=== PATIENT | female | born 1945 | race Caucasian/White ===

== ENCOUNTER 2019-09-17 02:34 | Emergency (ER) | payer MEDICARE ==
[2014-07-27 14:17] VITALS: BP 142/62
[~2019-09-17 02:34] MED LIST: CELE200C PO; FERR325T14 PO; LEVO75TA5 PO; LISI-334 PO; NAPR220T70 PO; OXYC1TAB15 PO; WARF-78 PO; WARF4TAB64 PO
--- NOTE | 2019-09-17 03:00 | PHYS DOC ---
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 EMS reported that patient had increasing shortness of breath and family member called 911 at 0141 and presented to the patient home at 0151 she had shallow and agonal breathing with GCS of 3. Patient stopped breathing and around 0200 CPR was started by EMS because the family member was not able to find DNR documentation. Patient was in asystole THE time during the 38 minutes of CPR and brought him to ER. Weeks and dilated pupils without spontaneous breathing or cardiac activity without CPR. Review of Systems Review of Systems Unable to obtain Allergies Allergies Allergies Coded Allergies Type Severity Reaction Last Updated Verified Penicillins Allergy Severe ANAPHYLAXIS 06/07/14 Yes Erythromycin Base Allergy Intermediate RASH 06/07/14 Yes morphine Adverse Reaction Severe HYPOTENSION AND BRADYCARDIA 06/07/14 Yes Physical Exam Physical Exam Constitutional: Unresponsive CPR in progress HENT: Atraumatic. Eyes: Fixed dilated pupil. Neck: Atraumatic Cardiovascular: CPR in progress, no spontaneous cardiac activity without CPR Lungs & Thorax: No spontaneous respiration. Abdomen:Atraumatic. Extremities: Atraumatic, no spontaneous pulses without CPR Neurologic: Unresponsive. Psychologic: Unresponsive. EKG EKG [] Radiology/Procedures Radiology/Procedures [] Course & Med Decision Making Course & Med Decision Making Evolution of patient in ER showed 74-year-old male patient on hospice care brought in by EMS cardiorespiratory arrest with unsuccessful to auscultation. 38 minutes. Patient had fixed and dilated pupils ([facility]. CPR was stopped at 0238 and patient pronounced at that time. Patient family members were informed about the outcome of the patient. Dragon Disclaimer Dragon Disclaimer This electronic medical record was generated, in whole or in part, using a voice recognition dictation system. Departure Departure Impression: Primary Impression: Cardiorespiratory arrest Disposition: 20 (237) Condition: Referrals: YU HAMILTON MD (PCP) LESA BAUGH MD Sep 17, 2019 03:00
== END 2019-09-17 04:46 | disposition expired ==
LOC: ER 02:34
DX: I46.9 Cardiac arrest, cause unspecified (principal); R06.02 Shortness of breath; Z88.0 Allergy status to penicillin; Z88.1 Allergy status to other antibiotic agents; Z88.5 Allergy status to narcotic agent
CPT/HCPCS: 92950; 94760; 99285-25